=== PATIENT | female | born 1970 | race American Indian/Alaskan Native ===

== ENCOUNTER 2017-02-17 14:42 | Emergency (ER) | payer MEDICAID ==
[2017-02-17 14:42] VITALS: BMI 28.3
[2017-02-17 15:13] VITALS: TEMP 98.8
[2017-02-17 16:05] LABS: URINE APPEARANCE SLIGHT-CLOUDY (CLEAR); URINE BILIRUBIN NEGATIVE (NEGATIVE); URINE BLOOD MODERATE (NEGATIVE); URINE COLOR YELLOW (YELLOW); URINE GLUCOSE (UA) NEGATIVE (NEGATIVE); URINE KETONE NEGATIVE (NEGATIVE); URINE LEUKOCYTE ESTERASE NEGATIVE Leu/uL (NEGATIVE); URINE PROTEIN TRACE mg/dL (<30 mg/dL); URINE UROBILINOGEN 0.2 E.U./dL (<1 E.U./dL)
--- NOTE | 2017-02-17 16:12 | ED PDOC ---
Arrival/HPI - General Historian: Patient <Angela Nava A - Last Filed: 02/17/17 21:02> <Aftab Engle - Last Filed: 02/17/17 23:37> - General Chief Complaint: Abdominal Pain Time Seen by Provider: 02/17/17 14:47 - History of Present Illness Narrative History of Present Illness (Text): 02/17/17 16:09 46yo female with PMX of Cardiomyopathy who present with 3days history of suprapubic pain that radiates to her b/l flank. Describes pain as burning. She denies nausea, vomiting, diarrhea, hematuria, dysuria, urinary frequency, any other complaint. (Angela Nava A) Past Medical History - Provider Review Nursing Documentation Reviewed: Yes - Infectious Disease Hx of Infectious Diseases: None - Tetanus Immunization Tetanus Immunization: Unknown - Cardiac Hx Cardiac Disorders: Yes Other/Comment: Cardiomyopathy - Pulmonary Hx Respiratory Disorders: No - Neurological Hx Neurological Disorder: No - HEENT Hx HEENT Disorder: No - Renal Hx Renal Disorder: No - Endocrine/Metabolic Hx Endocrine Disorders: No - Hematological/Oncological Hx Blood Disorders: No - Integumentary Hx Dermatological Disorder: No - Musculoskeletal/Rheumatological Hx Falls: No - Gastrointestinal Hx Gastrointestinal Disorders: No - Genitourinary/Gynecological Other/Comment: Tubal Ligation - Psychiatric Hx Psychophysiologic Disorder: No Hx Substance Use: No - Surgical History Hx Tubal Ligation: Yes - Anesthesia Hx Anesthesia Reactions: No Hx Malignant Hyperthermia: No - Suicidal Assessment Feels Threatened In Home Enviroment: No <Angela Nava A - Last Filed: 02/17/17 21:02> Family/Social History - Physician Review Nursing Documentation Reviewed: Yes Family/Social History: Unknown Family HX Smoking Status: Never Smoked Hx Alcohol Use: Yes Frequency of alcohol use: Socially Hx Substance Use: No <Angela Nava A - Last Filed: 02/17/17 21:02> Allergies/Home Meds <Angela Nava A - Last Filed: 02/17/17 21:02> <Aftab Engle - Last Filed: 02/17/17 23:37> Allergies/Adverse Reactions: Allergies No Known Allergies Allergy (Verified 02/17/17 16:11) Review of Systems - Physician Review All systems were reviewed & negative as marked: Yes - Review of Systems Constitutional: Normal Eyes: Normal ENT: Normal Respiratory: Normal Cardiovascular: Normal Gastrointestinal: Abdominal Pain. absent: Constipation, Diarrhea, Nausea, Vomiting, Hematochezia, Hematemesis Genitourinary Female: Normal Musculoskeletal: Normal Skin: Normal Neurological: Normal Endocrine: Normal Hemo/Lymphatic: Normal Psychiatric: Normal <BrandyAngela A - Last Filed: 02/17/17 21:02> Physical Exam Vital Signs Reviewed: Yes Temperature: Afebrile Blood Pressure: Normal Pulse: Regular Respiratory Rate: Normal Appearance: Positive for: Well-Appearing, Non-Toxic, Comfortable Pain Distress: None Mental Status: Positive for: Alert and Oriented X 3 - Systems Exam Head: Present: Atraumatic, Normocephalic Pupils: Present: PERRL Extroacular Muscles: Present: EOMI Conjunctiva: Present: Normal Mouth: Present: Moist Mucous Membranes Neck: Present: Normal Range of Motion Respiratory/Chest: Present: Clear to Auscultation, Good Air Exchange. No: Respiratory Distress, Accessory Muscle Use Cardiovascular: Present: Regular Rate and Rhythm, Normal S1, S2. No: Murmurs Abdomen: Present: Tenderness (Suprapubic tenderness), Normal Bowel Sounds, Other (Soft). No: Distention, Peritoneal Signs, Rebound, Guarding, McBurney's Point Tender, Rovsing's Sign Present Back: Present: Normal Inspection Upper Extremity: Present: Normal Inspection. No: Cyanosis, Edema Lower Extremity: Present: Normal Inspection. No: Edema Neurological: Present: GCS=15, CN II-XII Intact, Speech Normal Skin: Present: Warm, Dry, Normal Color. No: Rashes Psychiatric: Present: Alert, Oriented x 3, Normal Insight, Normal Concentration <Angela lucio A - Last Filed: 02/17/17 21:02> Vital Signs Temp Pulse Resp BP Pulse Ox 02/17/17 18:15 85 17 131/81 100 02/17/17 17:50 80 16 129/77 100 02/17/17 16:42 82 17 131/80 98 02/17/17 15:07 98.8 F 73 18 134/86 99 Medical Decision Making <Angela Nava A - Last Filed: 02/17/17 21:02> <Aftab Engle - Last Filed: 02/17/17 23:37> ED Course and Treatment: 02/17/17 21:02 PT was hemodynamically stable and comfortable in ED. She was treated with Macorbid for UTI. Lab was unremarkable. She was referred to her PMD. TRT ED for any new or worsening symptoms. (Angela Nava) - Lab Interpretations Lab Results: 02/17/17 17:20 02/17/17 17:20 Lab Results 02/17/17 17:20: Sodium 141, Potassium 4.0, Chloride 104, Carbon Dioxide 29, Anion Gap 12, BUN 6 L, Creatinine 0.8, Est GFR ( Amer) > 60, Est GFR (Non -Af Amer) > 60, Random Glucose 85, Calcium 9.7, Total Bilirubin 0.7, AST 17, ALT 32, Alkaline Phosphatase 70, Total Protein 7.9, Albumin 4.3, Globulin 3.6, Albumin/Globulin Ratio 1.2, Lipase 187 02/17/17 17:20: WBC 4.9 D, RBC 4.60, Hgb 12.3, Hct 37.8, MCV 82.2, MCH 26.7, MCHC 32.5, RDW 12.5, Plt Count 337, MPV 10.0, Gran % 47.7 L, Lymph % (Auto) 41.4 H, Stewart % (Auto) 6.6 H, Eos % (Auto) 3.3, Baso % (Auto) 1.0, Gran # 2.31, Lymph # 2.0, Stewart # 0.3, Eos # 0.2, Baso # 0.05 02/17/17 15:31: Urine Color Yellow, Urine Appearance Slight-cloudy, Urine pH 6.0 , Ur Specific [place] 1.025, Urine Protein Trace H, Urine Glucose (UA) Negative , Urine Ketones Negative, Urine Blood Moderate H, Urine Nitrate Positive H, Urine Bilirubin Negative, Urine Urobilinogen 0.2, Ur Leukocyte Esterase Negative , Urine RBC 2 - 5, Urine WBC 2 - 5, Ur Epithelial Cells 4 - 5, Urine Bacteria Many - Medication Orders Current Medication Orders: Discontinued Medications Ketorolac Tromethamine (Toradol) 60 mg IM STAT STA Stop: 02/17/17 16:14 Last Admin: 02/17/17 17:31 Dose: 60 mg MAR Pain Assessment Document 02/17/17 17:31 SF (Rec: 02/17/17 17:31 [id number]) Pain Reassessment Is this a pain reassessment? Yes Sleep Is patient sleeping during reassessment? No Presence of Pain Presence of Pain Yes Location Pain Location Body Site Abdomen IM Administration Charges Document 02/17/17 17:31 SF (Rec: 02/17/17 17:31 [id number] Injection Site MAR Injection Site Left Deltoid Charges for Administration # of IM Administrations 1 Nitrofurantoin Macrocrystals (Macrobid) 100 mg PO Q12 STA Stop: 02/17/17 16:14 Last Admin: 02/17/17 17:31 Dose: 100 mg - PA / AIX ARCHITECT / Resident Statement MD/DO has reviewed & agrees with the documentation as recorded. <Aftab Engle - Last Filed: 02/17/17 23:37> Disposition/Present on Arrival - Present on Arrival Any Indicators Present on Arrival: No History of DVT/PE: No History of Uncontrolled Diabetes: No Urinary Catheter: No History of Decub. Ulcer: No History Surgical Site Infection Following: None - Disposition Have Diagnosis and Disposition been Completed?: Yes Disposition Time: 16:30 Patient Plan: Discharge <Angela Nava - Last Filed: 02/17/17 21:02> <Aftab Engle - Last Filed: 02/17/17 23:37> - Disposition Diagnosis: UTI (urinary tract infection) Disposition: HOME/ ROUTINE Condition: FAIR Discharge Instructions (ExitCare): Urinary Tract Infection in Women (ED) Additional Instructions: Follow up with your doctor Drink plenty of fluid and take cranberry supplement Return to ED for any new or worsening symptoms Prescriptions: Nitrofurantoin Macrocrystals [Macrobid] 100 mg PO BID #14 cap Referrals: Radha Mcguire MD [Primary Care Provider] - Follow up with primary Forms: [id number] (Maltese)
[2017-02-17 16:38] LABS: URINE BACTERIA MANY (NEG)
[2017-02-17 17:40] LABS: ALB/GLOB RATIO 1.2 (1.1-1.8); ALKALINE PHOSPHATASE 70 U/L (38-126); ALT/SGPT 32 U/L (7-56); AST/SGOT 17 U/L (14-36); BILIRUBIN,TOTAL 0.7 mg/dL (0.2-1.3); BLOOD UREA NITROGEN 6 mg/dL (7-21); CALCIUM 9.7 mg/dL (8.4-10.5); CARBON DIOXIDE 29 mmol/L (21-33); CHLORIDE 104 mmol/L (98-107); GFR AFRICAN-AMERICAN > 60; GLUCOSE,RANDOM 85 mg/dL (70-110); LIPASE 187 U/L (23-300); SODIUM 141 mmol/L (132-148); TOTAL PROTEIN 7.9 g/dL (5.8-8.3)
[2017-02-17 17:48] LABS: BASO # 0.05 K/mm3 (0.0-2.0); EOS # 0.2 (0.0-0.7); EOS % 3.3 % (1.5-5.0); GRAN # 2.31 (1.4-6.5); GRAN % 47.7 % (50.0-68.0); HEMATOCRIT 37.8 % (36.0-48.0); LYMPH % 41.4 % (22.0-35.0); MEAN CELL VOLUME 82.2 fl (80.0-105.0); MEAN CORPUSCULAR HEMOGLOBIN 26.7 pg (25.0-35.0); MEAN CORPUSCULAR HGB CONC 32.5 g/dl (31.0-37.0); MONO # 0.3 (0.1-0.6); MONO % 6.6 % (1.0-6.0); RED CELL DISTRIBUTION WIDTH 12.5 % (11.5-14.5); WHITE BLOOD COUNT 4.9 10^3/ul (4.5-11.0)
[2017-02-17 17:51] VITALS: O2SAT 100
[2017-02-17 18:37] VITALS: BP 131/81; PULSE 85; RESP 17
== END 2017-02-17 18:15 | disposition home or self-care (01) ==
LOC: ED 14:42
DX: N39.0 Urinary tract infection, site not specified (principal)
CPT/HCPCS: 80053; 81001; 83690; 85025; 87086; 87181; 96372; 99285; J1885

== ENCOUNTER 2018-05-23 12:03 | Outpatient (CLI) | payer OTHER | END 2018-05-23 12:04 | disposition home or self-care (01) | LOC: LAB 12:03 ==